=== PATIENT | female | born 1995 | race Native Hawaiian/Other Pacific Islander ===

== ENCOUNTER 2022-07-03 13:24 | Emergency (ER) | payer OTHER ==
[~2022-07-03] VITALS: Ht 172.7 cm; Wt 131.1 kg
[2022-07-03 13:39] VITALS: TEMP 98.7
[2022-07-03 13:59] LABS: PLATELET COUNT 261 K/uL (152-353)
[2022-07-03 14:15] LABS: PARTIAL THROMBOPLASTIN TIME 29.2 SECONDS (24.5-33.6)
[2022-07-03 15:06] VITALS: BP 123/82
== END 2022-07-03 15:25 | disposition home or self-care (01) ==
LOC: ED 13:24
PROVIDERS: Family Medicine
DX: I47.1 Supraventricular tachycardia (principal); R07.89 Other chest pain
CPT/HCPCS: 36415; 80053; 82550; 84484; 85027; 85610; 85730; 93005; 96360; 96374; 96375; 99285; J0153